=== PATIENT | female | born 1970 | race Caucasian/White ===

== ENCOUNTER 2020-01-18 07:49 | Outpatient (CLI) | payer BC, SELFPAY ==
--- NOTE | 2020-01-18 07:58 | MM_ITS ---
WS: [id number] DIAGNOSTIC RIGHT DIGITAL MAMMOGRAM WITH CAD HISTORY: 6 MO F/U ABNORMAL MAMMO (DENSITY) COMPARISON: 07/13/2019, 01/05/2019, 05/29/2018 and 01/24/2015 Technique: CC, MLO and ML views. Spot compression RIGHT CC and MLO. Breast composition: There are scattered areas of fibroglandular density. The asymmetric soft tissue in the upper outer quadrant of the RIGHT breast near the axillary tail is less dense as compared to t he prior study. There has been no increase in size. No calcifications. Favor normal fibroglandular de nsity. MM/[place] [id number] IMPRESSION: BI-RADS: 3-Probably Benign FOLLOW UP: See Report Patient to return for annual mammogram in June 2020. At that time additional diagnostic evaluation of the RIGHT breast asymmetry can be performed to evaluat e for long-term stability.
== END 2020-01-18 07:50 | disposition home or self-care (01) ==
LOC: RADSHAW 07:53
PROVIDERS: Family Provider Nurse Practitioner Family; PCP Nurse Practitioner Family; Visit Provider Nurse Practitioner Family
DX: N64.89 Other specified disorders of breast (principal); R92.8 Other abnormal and inconclusive findings on diagnostic imaging of breast
CPT/HCPCS: 77065

== ENCOUNTER 2020-06-20 07:53 | Outpatient (CLI) | payer BC, SELFPAY ==
--- NOTE | 2020-06-20 07:57 | MM_ITS ---
WS: [id number] BILATERAL DIGITAL DIAGNOSTIC MAMMOGRAM MAMMOGRAPHY WITH CAD CLINICAL INFORMATION: 6 MO F/U STABILITY COMPARISON: , January 18, 2020, and January 05, 2019 TECHNIQUE: Bilateral CC, MLO, and ML views. FINDINGS: Scattered fibroglandular densities bilaterally. Again seen is the asymmetric density upper outer quad rant right breast near the axillary tail similar to the prior examinations. No evidence of progressio n. This is stable since January 05, 2019 No suspicious focal mass, asymmetry, calcifications, or architectural distortion. No evidence of julia gnancy. Recommend return to annual screening mammography. MM/[id number] IMPRESSION: BI-RADS: 2-Benign FOLLOW UP: 1 Year Follow-up Recommend return to annual screening mammography.
== END 2020-06-20 07:54 | disposition home or self-care (01) ==
LOC: RADSHAW 07:55
PROVIDERS: Family Provider Nurse Practitioner Family; PCP Nurse Practitioner Family; Visit Provider Nurse Practitioner Family
DX: Z12.31 Encounter for screening mammogram for malignant neoplasm of breast (principal)
CPT/HCPCS: 77066

== ENCOUNTER 2021-06-22 07:39 | Outpatient (CLI) | payer BC, SELFPAY ==
--- NOTE | 2021-06-22 07:45 | MM_ITS ---
WS: [id number] BILATERAL SCREENING DIGITAL MAMMOGRAM WITH CAD HISTORY: SCREENING COMPARISON: 06/20/2020 and 07/13/2019 Bilateral CC and MLO views submitted. Computer aided detection analyzed. Breast composition: There are scattered areas of fibroglandular density. No suspicious masses, microc alcifications or architectural distortion. MM/[id number] IMPRESSION: BI-RADS: 1-Negative FOLLOW UP: 1 Year Follow-up
== END 2021-06-22 07:40 | disposition home or self-care (01) ==
PROVIDERS: PCP Family Medicine; Visit Provider Family Medicine
DX: Z12.31 Encounter for screening mammogram for malignant neoplasm of breast (principal)
CPT/HCPCS: 77067

== ENCOUNTER 2022-06-28 07:27 | Outpatient (CLI) | payer BC, SELFPAY ==
--- NOTE | 2022-06-28 07:34 | MM_ITS ---
WS: [id number] VIEWS: MLO and CC views both breasts. 3D digital tomosynthesis is also included in this exam. Comparison made with prior exam of 01/05/2019, 01/18/2020 and 06/22/2021 Findings: There was no sign of mass, architectural distortion or suspicious calcification in either breast. Fa [place]ty MM/[place] [id number] Impression: BI-RADS: 2-Benign FOLLOW-UP: 1 Year Follow-up This mammogram was also analyzed by the Computer Aided Detection System [employer].
== END 2022-06-28 07:28 | disposition home or self-care (01) ==
LOC: RAD 07:28
PROVIDERS: PCP Family Medicine; Visit Provider Family Medicine
DX: Z12.31 Encounter for screening mammogram for malignant neoplasm of breast (principal)
CPT/HCPCS: 77063; 77067

== ENCOUNTER 2022-08-12 08:32 | Day surgery (SDC) | payer BC, SELFPAY ==
[2022-08-11 10:24] VITALS: BMI 47.9
--- NOTE | 2022-08-12 08:57 | W.PM.OPSFHP ---
Same Day Surgery H&P Indication for Procedure/HPI DATE OF PROCEDURE: August 12, 2022 CHIEF COMPLAINT/INDICATIONFOR SURGICAL PROCEDURE: Screening colonoscopy PREOP DIAGNOSIS: Screening colonoscopy PLANNED PROCEDURE: Operation Date: 08/12/22 10:00 Proposed Procedures p Colonoscopy 66618,Z12.11(Not Applicable) - Con Cooney MD This is a pleasant 52 years old female patient referred to my practice for screening colonoscopy, patient does report 25 years ago had a colonoscopy and that was normal per her description. As she did have unintentional weight loss and that was an indication to have the scope. 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 Unfortunately I do not have the records for that but the patient has been followed up on at [facility] on annual basis and she ended up by having a laparoscopic total abdominal hysterectomy. Patient also reports to me that her niece had back in December 2021 in [place] due to anesthesia complication per patient's description. Patient reports to me no history of anesthesia complication for herself. Patient denies any bleeding per rectum or history of colon cancer. ROS All systems have been reviewed negative except as for the above or per problem list. Medications/Allergies* Home Medications Medication Instructions Recorded Confirmed Type No Known Home Medications 08/11/22 08/11/22 History Allergies/Adverse Reactions Allergy/AdvReac Type Severity Reaction Status Date / Time No Known Allergies Allergy Verified 08/12/22 10:05 Pertinent Exam Findings alert, oriented x 3, clear to auscultation bilaterally, regular rate & rhythm and procedure specific exam findings (Abdominal exam nontender nondistended soft) Recommendations Surgery/Procedure today (Colonoscopy with possible biopsy) Other Plans: Plan of care; After thorough history and physical examination and reviewing the chart, plan to perform screening colonoscopy. I discussed with the patient in details the risks,benefits,alternatives and indications.The risk of aspiration, bleeding, soft tissue injury, perforation of the colon and other potential concomitant complications were explained to the patient in details,also the potential need for Laproscoy/Laparotomy to repair any related complications including but not limited to colectomy and or Closotomy.The patient understood this well and did agree to proceed. Rationale was carefully and clearly discussed with the patient.Appropriate informed consent have been reviewed and signed All questions have been answered and all concerns have been addressed to patient's satisfaction. Verbal and written Instructions were given to the patient for colonoscopy prep Coding Level of Care Code Acute Salon Assistant for Candice Lopez
[2022-08-12 09:12] VITALS: BP 139/103; PULSE 67; RESP 16; TEMP 36.5; O2SAT 97
[2022-08-12] MEDS: sodium chloride 0.9% 1,000 ML 30 ML IV (09:29)
--- NOTE | 2022-08-12 10:13 | ANES.PREANE2 ---
Pre-Anesthetic Assessment Height/Weight: Height 1.75 m Weight 147.418 kg Temp Pulse Resp BP Pulse Ox O2 Del Method 97.7 F 67 16 139/103 97 08/12/22 09:12 08/12/22 09:12 08/12/22 09:12 08/12/22 09:12 08/12/22 09:12 08/12/22 09:12 Preop Diagnosis: Screening colonoscopy Operation Date: 08/12/22 10:00 Proposed Procedures p Colonoscopy 03545,Z12.11(Not Applicable) - Con Cooney MD Familial anesthetic complications: 34 yo healthy female niece underwent bone biopsy of toe and ended up with what sounds like anoxic brain damage and she eventually passed. Per patient, it sounds as though it was due to anesthestic overdose. Was Beta Vahid taken within 24 hours: N/A Was Clonidine taken within 24 hours: N/A Last intake: Intake Last Liquid Date 08/11/22 Last Liquid Time 20:30 Last Solid Date 08/10/22 Last Solid Time 20:00 Social No alcohol and No tobacco Exam alert, oriented x 3, clear to auscultation bilaterally and regular rate & rhythm Airway Mallampati: Class III Dentition: full Metabolic Morbid Obesity Anesthetic Plan ASA status: 2 Anesthesia: MAC Risk of > 500 ml blood loss (7ml/kg in children): No Medications/Allergies Home Medications Medication Instructions Recorded Confirmed Last Taken Type No Known Home Medications 08/11/22 08/11/22 Unknown History Allergies Allergy/AdvReac Type Severity Reaction Status Date / Time No Known Allergies Allergy Verified 08/12/22 10:05 Current Medications Generic Name Dose Route Start Last Admin Trade Name Finn PRN Reason Stop Dose Admin Sodium Chloride 1,000 mls @ 30 mls/hr 08/12/22 09:00 08/12/22 09:29 Sodium Chloride 0.9% IV 08/13/22 08:59 30 mls/hr .Q24H AMBROSIO Administration Data Anesthesia Cardiac Studies: No Data to Display
[2022-08-12 11:12] VITALS: BP 107/77; PULSE 72; RESP 16; TEMP 36.1; O2SAT 98
[2022-08-12 11:17] VITALS: BP 114/69; PULSE 65; RESP 18; O2SAT 96
[2022-08-12 11:27] VITALS: BP 131/76; PULSE 66; RESP 18; O2SAT 98
== END 2022-08-12 11:47 | disposition home or self-care (01) ==
PROVIDERS: PCP Family Medicine; Visit Provider Surgery
PROC: 0DJD8ZZ Inspection of Lower Intestinal Tract, Via Natural or Artificial Opening Endoscopic (ICD-10-PCS; CPT 45378; principal; 2022-08-12 10:00)
DX: Z12.11 Encounter for screening for malignant neoplasm of colon (principal); E66.01 Morbid (severe) obesity due to excess calories; Z68.42 Body mass index [BMI] 45.0-49.9, adult
CPT/HCPCS: 45378; J2704; J7030

== ENCOUNTER 2022-11-12 07:24 | Day surgery (SDC) | payer BC, SELFPAY ==
[2022-11-10 09:28] VITALS: BMI 39.2
[2022-11-12 07:39] VITALS: BP 122/89; PULSE 74; RESP 18; TEMP 36.5; O2SAT 95
[2022-11-12] MEDS: sodium chloride 0.9% 1,000 ML 30 ML IV (07:45)
--- NOTE | 2022-11-12 07:49 | ANES.PREANE2 ---
Pre-Anesthetic Assessment Height/Weight: Height 1.78 m Weight 123.831 kg Temp Pulse Resp BP Pulse Ox O2 Del Method 97.7 F 74 18 122/89 95 11/12/22 07:39 11/12/22 07:39 11/12/22 07:39 11/12/22 07:39 11/12/22 07:39 11/12/22 07:39 Preop Diagnosis: Screening colonoscopy Operation Date: 11/12/22 08:30 Proposed Procedures p Colonoscopy 49550/Z12.11(Not Applicable) - Josue Ratliff DO Familial anesthetic complications: none Was Beta Vahid taken within 24 hours: N/A Was Clonidine taken within 24 hours: N/A Last intake: Intake Last Liquid Date 11/11/22 Last Liquid Time 21:00 Last Solid Date 11/10/22 Last Solid Time 19:00 Social No alcohol and No tobacco Exam alert, oriented x 3, clear to auscultation bilaterally and regular rate & rhythm Airway Submandibular: within normal limits Cervical ROM: within normal limits Mallampati: Class II Dentition: full Pulmonary None reported CV/HEM None reported None reported Hepatic None reported GI gastric sleeve recently Metabolic Morbid Obesity [facility] [place], [place] None reported Neuropsych None reported Anesthetic Plan ASA status: 2 Anesthesia: MAC Risk of > 500 ml blood loss (7ml/kg in children): No Medications/Allergies Home Medications Medication Instructions Recorded Confirmed Last Taken Type Bariatric Multivitamins 2 tab PO DAILY 11/10/22 11/10/22 11/10/22 History Multivitamin Gummies 3 tab PO DAILY 11/10/22 11/10/22 11/10/22 History Vitamin D3 100 mcg PO DAILY 11/10/22 11/10/22 11/10/22 History biotin 1,000 mcg PO DAILY 11/10/22 11/10/22 11/10/22 History vitamin [id number]-[id number] acid 50 mcg PO DAILY 11/10/22 11/10/22 11/10/22 History Allergies Allergy/AdvReac Type Severity Reaction Status Date / Time No Known Allergies Allergy Verified 11/10/22 09:22 Current Medications Generic Name Dose Route Start Last Admin Trade Name Freq PRN Reason Stop Dose Admin Sodium Chloride 1,000 mls @ 30 mls/hr 11/12/22 07:30 11/12/22 07:45 Sodium Chloride 0.9% IV 11/13/22 07:29 30 mls/hr .Q24H AMBROSIO Administration PFSH Anesthesia Surgical History History of sleeve gastrectomy Data Anesthesia Cardiac Studies: No Data to Display
--- NOTE | 2022-11-12 08:15 | W.PM.OPSUD ---
Surgery/Procedure H&P Update DATE OF PROCEDURE: November 12, 2022 DATE H&P PERFORMED: 11/09/22 PREOP DIAGNOSIS: Screening colonoscopy PLANNED PROCEDURE: Operation Date: 11/12/22 08:30 Proposed Procedures p Colonoscopy 28459/Z12.11(Not Applicable) - Josue Ratliff DO
[2022-11-12 08:38] VITALS: BP 101/71; PULSE 72; RESP 12; TEMP 36.6; O2SAT 96
--- NOTE | 2022-11-12 08:41 | ANE.PACU2 ---
Inpatient post-anesthesia follow up: Airway intact: Yes Vital signs: Temperature 97.8 F Pulse Rate 72 Respiratory Rate 12 Blood Pressure 101/71 Pulse Oximetry 96 Oxygen Delivery Me thod Room Air Oxygen Flow Rate Fraction of Inspir ed Oxygen Hydration adequate: Yes Nausea and vomiting: No Pain level: 1 Mental status: Baseline
[2022-11-12 08:48] VITALS: BP 105/65; PULSE 72; RESP 14; O2SAT 96
== END 2022-11-12 09:08 | disposition home or self-care (01) ==
PROVIDERS: PCP Family Medicine; Visit Provider Surgery
PROC: 0DJD8ZZ Inspection of Lower Intestinal Tract, Via Natural or Artificial Opening Endoscopic (ICD-10-PCS; CPT 45378; principal; 2022-11-12 08:30)
DX: Z12.11 Encounter for screening for malignant neoplasm of colon (principal); Z98.84 Bariatric surgery status; E66.01 Morbid (severe) obesity due to excess calories; Z68.39 Body mass index [BMI] 39.0-39.9, adult
CPT/HCPCS: 45378; J2704; J7030

== ENCOUNTER → 2023-02-09 09:28 | Outpatient (BNVA) | payer BC, SELFPAY | PROVIDERS: PCP Family Medicine; Visit Provider Family Medicine | DX: Z00.00 Encounter for general adult medical examination without abnormal findings (principal); Z12.11 Encounter for screening for malignant neoplasm of colon | CPT/HCPCS: 80053; 80061; 83036; 85025 ==

== ENCOUNTER 2023-07-08 09:18 | Outpatient (CLI) | payer BC, SELFPAY ==
--- NOTE | 2023-07-08 09:30 | MM_ITS ---
WS: [id number] SCREENING DIGITAL TOMOSYNTHESIS MAMMOGRAM WITH CAD HISTORY: SCREENING COMPARISON: 06/28/2022, 06/22/2021 Bilateral CC and MLO with tomosynthesis views submitted. Synthetic mammography reviewed. Computer aid ed detection analyzed. Breast composition: There are scattered areas of fibroglandular density. No suspicious masses, microc alcifications or architectural distortion. IMPRESSION: MM/[place] [id number] BI-RADS: 1-Negative FOLLOW UP: 1 Year Follow-up
== END 2023-07-08 09:19 | disposition home or self-care (01) ==
PROVIDERS: PCP Family Medicine; Visit Provider Family Medicine
DX: Z12.31 Encounter for screening mammogram for malignant neoplasm of breast (principal)
CPT/HCPCS: 77063; 77067

== ENCOUNTER → 2024-02-14 08:54 | Outpatient (BNVA) | payer BC, SELFPAY | PROVIDERS: PCP Family Medicine; Visit Provider Family Medicine | DX: Z00.00 Encounter for general adult medical examination without abnormal findings (principal) | CPT/HCPCS: 80053; 80061; 82607; 83036; 85025 ==

== ENCOUNTER → 2024-04-05 07:59 | Outpatient (BNVA) | payer BC, SELFPAY | PROVIDERS: PCP Family Medicine; Visit Provider Family Medicine | DX: E87.0 Hyperosmolality and hypernatremia (principal) | CPT/HCPCS: 80053 ==

== ENCOUNTER 2024-07-10 08:52 | Outpatient (CLI) | payer BC, SELFPAY ==
--- NOTE | 2024-07-10 08:59 | MM_ITS ---
WS: [id number] VIEWS: MLO and CC views both breasts. 3D digital tomosynthesis is also included in this exam. Comparison made with prior exam of 08/25/2012, 12/05/2012, 10/02/2013, 01/09/2015, 02/27/2018, 05/29/2018 , 01/05/2019, 06/20/2020, 06/22/2021, 06/28/2022, 07/08/2023.. Findings: There was no sign of mass, architectural distortion or suspicious calcification in either breast. The breasts are almost entirely fatty MM/[place] [id number] Impression: BI-RADS: 1-Negative FOLLOW-UP: 1 Year Follow-up This mammogram was also analyzed by the Computer Aided Detection System R2 Imag e [employer] Super[employer].
== END 2024-07-10 08:53 | disposition home or self-care (01) ==
LOC: RAD 08:53
PROVIDERS: PCP Family Medicine; Visit Provider Family Medicine
DX: Z12.31 Encounter for screening mammogram for malignant neoplasm of breast (principal)
CPT/HCPCS: 77063; 77067

== ENCOUNTER 2025-07-12 08:30 | Outpatient (CLI) | payer BC, SELFPAY ==
--- NOTE | 2025-07-12 08:37 | MM_ITS ---
WS: [email or web address] VIEWS: MLO and CC views both breasts. 3D digital tomosynthesis is also included in this exam. Comparison made with prior exam of 08/25/2012, 12/05/2012, 10/02/2013, 01/09/2015, 05/29/2018, 06/01/2018, 01/05/2019, 08/13/2019, 01/18/2020, 06/22/2021, 06/28/2022, 07/08/2023, 07/10/2024.. Findings: There are scattered areas of fibroglandular density. No suspicious mass, tumor calcification or architectural distortion. MM/MM scr BI tomosynthesis [id number] Impression: BI-RADS: 2 - Benign. FOLLOW-UP: 1 Year Follow-up This mammogram was also analyzed by the Computer Aided Detection System R2 Imag e [employer].
== END 2025-07-12 08:31 | disposition home or self-care (01) ==
LOC: RAD 08:31
PROVIDERS: PCP Family Medicine; Visit Provider Family Medicine
DX: Z12.31 Encounter for screening mammogram for malignant neoplasm of breast (principal); R92.323 Mammographic fibroglandular density, bilateral breasts
CPT/HCPCS: 77063; 77067

== ENCOUNTER → 2025-10-15 08:51 | Outpatient (BNVA) | payer BC, SELFPAY | PROVIDERS: PCP Family Medicine; Visit Provider Family Medicine | DX: Z00.00 Encounter for general adult medical examination without abnormal findings (principal); E55.9 Vitamin D deficiency, unspecified | CPT/HCPCS: 80053; 80061; 82306; 82607; 83036; 85025 ==